=== PATIENT | male | born 1965 | race Caucasian/White ===

== ENCOUNTER 2020-11-19 01:11 | Emergency (ER) | payer OTHER ==
[~2020-11-19] VITALS: Ht 170.2 cm; Wt 76.7 kg
[2020-11-19] MEDS ORDERED: Norco 10-325 T1 EACH PO (02:30)
== END 2020-11-19 03:00 | disposition home or self-care (01) ==
LOC: ER 01:11
DX: T24.232A Burn of second degree of left lower leg, initial encounter (principal); X08.8XXA Exposure to other specified smoke, fire and flames, initial encounter
CPT/HCPCS: 16000; 96361-59; 96374-59; 96375-59; 99283-25; A9270; J1170; J2405; J7030

== ENCOUNTER 2020-11-28 13:19 | Day surgery (SDC) | payer OTHER ==
[~2020-11-28 13:19] MED LIST: Norco 10-325 T1 EACH PO
== END 2020-11-28 22:40 | disposition home or self-care (01) ==
LOC: WOUND 13:19
DX: T24.202D Burn of second degree of unspecified site of left lower limb, except ankle and foot, subsequent encounter (principal); I96 Gangrene, not elsewhere classified; X16.XXXD Contact with hot heating appliances, radiators and pipes, subsequent encounter
CPT/HCPCS: A9270; G0463

== ENCOUNTER 2020-12-07 00:21 | Day surgery (SDC) | payer OTHER | END 2020-12-07 22:36 | disposition home or self-care (01) | LOC: WOUND 00:21 | DX: T24.232D Burn of second degree of left lower leg, subsequent encounter (principal); X16.XXXD Contact with hot heating appliances, radiators and pipes, subsequent encounter | CPT/HCPCS: A9270; G0463 ==

== ENCOUNTER 2020-12-14 00:21 | Day surgery (SDC) | payer OTHER | END 2020-12-14 23:45 | disposition home or self-care (01) | LOC: WOUND 00:21 | DX: T24.232D Burn of second degree of left lower leg, subsequent encounter (principal); W29.2XXD Contact with other powered household machinery, subsequent encounter | CPT/HCPCS: A9270 ==

== ENCOUNTER 2020-12-28 01:38 | Day surgery (SDC) | payer OTHER | END 2020-12-28 23:00 | disposition home or self-care (01) | LOC: WOUND 01:38 | DX: T24.232D Burn of second degree of left lower leg, subsequent encounter (principal); X16.XXXD Contact with hot heating appliances, radiators and pipes, subsequent encounter | CPT/HCPCS: A9270 ==

== ENCOUNTER 2021-01-17 00:23 | Day surgery (SDC) | payer OTHER | END 2021-01-17 22:51 | disposition home or self-care (01) | LOC: WOUND 00:23 | DX: T24.232D Burn of second degree of left lower leg, subsequent encounter (principal); X16.XXXD Contact with hot heating appliances, radiators and pipes, subsequent encounter | CPT/HCPCS: A9270; G0463 ==

== ENCOUNTER 2021-01-27 21:05 | Emergency (ER) | payer OTHER ==
[~2021-01-27] VITALS: Ht 172.7 cm; Wt 81.7 kg
[2021-01-27 21:20] LABS: BASOPHILS ABSOLUTE AUTO 0.04 K/mm3 (0.00-0.23); BASOPHILS PERCENT AUTO 0 % (0-2); EOSINOPHILS ABSOLUTE AUTO 0.15 K/mm3 (0.00-0.68); EOSINOPHILS PERCENT AUTO 1 % (0-6); Hematocrit 36.2 % (37.0-53.0); Hemoglobin 11.4 g/dL (13.5-17.5); IMMATURE GRAN ABSOLUTE AUTO 0.05 K/mm3 (0.00-0.10); IMMATURE GRAN PERCENT AUTO 1 % (0-1); LYMPHOCYTES PERCENT AUTO 27 % (21-46); MONOCYTES ABSOLUTE AUTO 0.71 K/mm3 (0.16-1.47); MONOCYTES PERCENT AUTO 7 % (4-13); Mean Corpuscular HGB 25.9 pg (26.0-34.0); Mean Corpuscular HGB Conc 31.5 g/dL (31.5-36.5); Mean Corpuscular Volume 82 fL (80-100); Mean Platelet Volume 8.8 fL (9.1-12.4); NEUTROPHILS ABSOLUTE AUTO 6.68 K/mm3 (1.96-9.15); NEUTROPHILS PERCENT AUTO 64 % (41-73); Platelet Count 410 K/mm3 (150-400); RDW Coefficient Variation 15.1 % (11.7-14.2); White Blood Cell Count 10.43 K/mm3 (4.00-11.30)
[2021-01-27 21:40] LABS: Alanine Aminotransfer (ALT/SGP 25 U/L (12-78); Albumin, Blood 2.9 g/dL (3.4-5.0); Albumin/Globulin Ratio 0.5 (0.8-1.8); Alk Phos 121 U/L (50-136); Anion Gap 7 mmol/L (6-16); Aspartate Aminotrans (AST/SGOT 25 U/L (12-37); Bilirubin, Total 0.1 mg/dL (0.1-1.0); Blood Urea Nitrogen 15 mg/dL (8-24); Bun/Creatinine Ratio 20.1 (12.0-20.0); CO2, Blood 26 mmol/L (21-32); Calcium, Blood 8.6 mg/dL (8.5-10.1); Chloride, Blood 106 mmol/L (98-108); Creatinine, Blood 0.75 mg/dL (0.60-1.20); Globulin, Blood 5.6 g/dL (2.2-4.0); Glomerular Filtration Rate >60 (60-); Glucose, Blood 101 mg/dL (70-99); Potassium, Blood 3.8 mmol/L (3.5-5.5); Sodium, Blood 139 mmol/L (136-145); Total Protein, Blood 8.5 g/dL (6.4-8.2)
[2021-01-27] MEDS ORDERED: BACITO TOP (22:57)
[2021-01-27] MEDS ORDERED: HYDR1TAB94 PO (22:57)
[2021-01-27] MEDS ORDERED: Colace250 MG PO (22:57)
== END 2021-01-27 23:40 | disposition home or self-care (01) ==
LOC: ER 21:05
PROVIDERS: Physician Assistant
DX: T20.26XA Burn of second degree of forehead and cheek, initial encounter (principal); F17.210 Nicotine dependence, cigarettes, uncomplicated
CPT/HCPCS: 16020; 80053; 85025; 90471; 96374-59; 96375-59; 96376-59; 99285-25; A9270; J1170

== ENCOUNTER 2021-01-31 00:29 | Day surgery (SDC) | payer OTHER ==
[~2021-01-31 00:29] MED LIST changes: +BACITO TOP; +Colace250 MG PO; +HYDR1TAB94 PO
== END 2021-01-31 23:15 | disposition home or self-care (01) ==
LOC: WOUND 00:29
DX: T24.232D Burn of second degree of left lower leg, subsequent encounter (principal); T20.00XD Burn of unspecified degree of head, face, and neck, unspecified site, subsequent encounter; X58.XXXD Exposure to other specified factors, subsequent encounter
CPT/HCPCS: A9270; G0463

== ENCOUNTER 2024-08-14 16:21 | Inpatient (IN) | payer OTHER ==
[~2024-08-14] VITALS: Ht 170.2 cm; Wt 72.6 kg
[~2024-08-14 16:21] MED LIST changes: +AMOCLA875 PO
[2024-08-14] MEDS ORDERED: Morphine Sulfate 4 MG/1 ML Injection IV ONE (16:45)
[2024-08-14 16:50] LABS: BASOPHILS ABSOLUTE AUTO 0.06 K/mm3 (0.00-0.23); BASOPHILS PERCENT AUTO 1 % (0-2); EOSINOPHILS ABSOLUTE AUTO 0.11 K/mm3 (0.00-0.68); EOSINOPHILS PERCENT AUTO 1 % (0-6); Hematocrit 34.6 % (37.0-53.0); Hemoglobin 10.6 g/dL (13.5-17.5); IMMATURE GRAN ABSOLUTE AUTO 0.15 K/mm3 (0.00-0.10); IMMATURE GRAN PERCENT AUTO 1 % (0-1); LYMPHOCYTES ABSOLUTE AUTO 1.39 K/mm3 (0.84-5.20); LYMPHOCYTES PERCENT AUTO 13 % (21-46); MONOCYTES ABSOLUTE AUTO 0.56 K/mm3 (0.16-1.47); MONOCYTES PERCENT AUTO 5 % (4-13); Mean Corpuscular HGB 28.6 pg (26.0-34.0); Mean Corpuscular HGB Conc 30.6 g/dL (31.5-36.5); Mean Corpuscular Volume 93 fL (80-100); Mean Platelet Volume 8.8 fL (9.1-12.4); NEUTROPHILS ABSOLUTE AUTO 8.46 K/mm3 (1.96-9.15); NEUTROPHILS PERCENT AUTO 79 % (41-73); Platelet Count 251 K/mm3 (150-400); RDW Coefficient Variation 14.8 % (11.7-14.2); RDW Standard Deviation 51.6 fL (35.1-46.3); Red Blood Cell Count 3.71 M/mm3 (4.30-5.90); White Blood Cell Count 10.73 K/mm3 (4.00-11.30)
[2024-08-14 17:06] LABS: Albumin, Blood 2.2 g/dL (3.4-5.0); Albumin/Globulin Ratio 0.5 (0.8-1.8); Bilirubin, Total 0.3 mg/dL (0.1-1.0); Bun/Creatinine Ratio 19.2 (12.0-20.0); Creatinine, Blood 0.63 mg/dL (0.60-1.20); Globulin, Blood 4.2 g/dL (2.2-4.0); Potassium, Blood 3.1 mmol/L (3.5-5.5); Total Protein, Blood 6.4 g/dL (6.4-8.2)
[2024-08-14] MEDS ORDERED: HYDROmorphone HCl/Pf 1MG SYR IV ONE ×2 (17:50→19:10)
[2024-08-14] MEDS ORDERED: Ondansetron HCl 2 MG / ML 2ML Vial IV PRN ×2 (19:45→21:05)
[2024-08-14] MEDS ORDERED: HYDROmorphone HCl/Pf 1MG SYR IV PRN (19:45)
[2024-08-14] MEDS ORDERED: Magnesium Hydroxide Conc 10 ML UDC PO PRN (21:05)
[2024-08-14] MEDS ORDERED: DiphenhydrAMINE HCL 25 MG Cap PO PRN (21:05)
[2024-08-14] MEDS ORDERED: FLU VACC TS2024-25(6MOS UP)/PF 45 MCG/0.5 ML SYRINGE IM SCH (21:10)
[2024-08-14] MEDS ORDERED: HYDROcodone 10-APAP 325 TAB PO PRN (21:10)
[2024-08-14 21:23] VITALS: BP 198/88
[2024-08-14] MEDS ORDERED: Ketorolac Tromethamine 15mg Vial IV PRN (21:30)
[2024-08-14] MEDS ORDERED: Famotidine 20 MG Tab PO SCH (22:00)
[2024-08-14] MEDS ORDERED: Docusate Sodium 100 MG Cap PO SCH (22:00)
[2024-08-14 23:48] VITALS: BP 191/77
[2024-08-15] VITALS (8 sets, daily range): BP systolic 148–199; BP diastolic 64–87
[2024-08-15] MEDS ORDERED: HydrALAZINE HCl 20 MG / ML 1ML Vial IV PRN (00:20)
--- NOTE | 2024-08-15 06:24 | NUR ---
SHIFT SUMMARY CHEST TUBE TO RIGHT ANTERIOR CHEST IN PLACE WITH SLIGHT SHADOWING AROUND INSERTION SITE. NO BUBBLING OR ABNORMALITIES NOTED WITH THORA-VENT/CHEST TUBE DRAINAGE SYSTEM. NO DRAINAGED NOTED. PT DENIES SHORTNESS OF BREATH OR DYSPNEA. MEDICATED X 1 FOR HYPERTENSION. PT USING URINAL IN BED. IDALMIS PO INTAKE. DENIES N/V. PT CURRENTLY RESTING IN BED WITH RESP EVEN. HAS CALL LIGHT IN REACH. WILL GIVE REPORT TO ONCOMING RN .
[2024-08-15] MEDS ORDERED: Enoxaparin 40 MG/0.4 ML SYR SC SCH (09:00)
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
[2024-08-16 04:41] VITALS: BP 180/93
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
[2024-08-16 07:04] VITALS: BP 166/79
[2024-08-16 14:45] VITALS: BP 179/85; BP 183/91
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
[2024-08-16 18:28] VITALS: BP 166/81
[2024-08-16 19:47] VITALS: BP 179/85
[2024-08-16 22:01] VITALS: BP 159/77
[2024-08-17 03:32] VITALS: BP 177/91
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
[2024-08-17 07:08] VITALS: BP 181/74
[2024-08-17 10:43] VITALS: BP 169/96
[2024-08-17 12:40] VITALS: BP 152/83
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
[2024-08-17 14:48] VITALS: BP 154/101
[2024-08-17 18:32] VITALS: BP 154/80
[2024-08-18 04:09] VITALS: BP 151/93
[2024-08-18 05:09] LABS: BASOPHILS ABSOLUTE AUTO 0.04 K/mm3 (0.00-0.23); BASOPHILS PERCENT AUTO 1 % (0-2); EOSINOPHILS ABSOLUTE AUTO 0.23 K/mm3 (0.00-0.68); EOSINOPHILS PERCENT AUTO 3 % (0-6); Hematocrit 36.9 % (37.0-53.0); Hemoglobin 11.7 g/dL (13.5-17.5); IMMATURE GRAN ABSOLUTE AUTO 0.01 K/mm3 (0.00-0.10); IMMATURE GRAN PERCENT AUTO 0 % (0-1); LYMPHOCYTES ABSOLUTE AUTO 2.47 K/mm3 (0.84-5.20); LYMPHOCYTES PERCENT AUTO 35 % (21-46); MONOCYTES ABSOLUTE AUTO 0.59 K/mm3 (0.16-1.47); MONOCYTES PERCENT AUTO 8 % (4-13); Mean Corpuscular HGB 27.7 pg (26.0-34.0); Mean Corpuscular HGB Conc 31.7 g/dL (31.5-36.5); Mean Corpuscular Volume 87 fL (80-100); Mean Platelet Volume 8.9 fL (9.1-12.4); NEUTROPHILS ABSOLUTE AUTO 3.68 K/mm3 (1.96-9.15); NEUTROPHILS PERCENT AUTO 52 % (41-73); Platelet Count 316 K/mm3 (150-400); RDW Coefficient Variation 15.4 % (11.7-14.2); RDW Standard Deviation 49.4 fL (35.1-46.3); Red Blood Cell Count 4.23 M/mm3 (4.30-5.90); White Blood Cell Count 7.02 K/mm3 (4.00-11.30)
--- NOTE | 2024-08-18 05:24 | NUR ---
SHIFT SUMMARY NO ACUTE CHANGES T/O SHIFT. PAIN MANAGED PER EMAR. PT DENIES SOB OR DYSPNEA. RESPIRATIONS EVEN AND UNLABORED. CONT BIOX IN PLACE WITH SPO2 ABOUT 97%. PREVIOUS THUROVENT PLACEMENT DRESSING CDI. IND TO BATHROOM. IDALMIS PO INTAKE. PT CURRENTLY RESTING IN BED WITH CALL LIGHT IN REACH. PLAN TO GIVE REPORT TO ONCOMING RN
[2024-08-18 05:49] LABS: Bun/Creatinine Ratio 22.5 (12.0-20.0); Creatinine, Blood 0.89 mg/dL (0.60-1.20); Potassium, Blood 4.1 mmol/L (3.5-5.5)
[2024-08-18 07:10] VITALS: BP 153/74
[2024-08-18] MEDS ORDERED: Lisinopril 10 MG Tab PO SCH (09:00)
[2024-08-18] MEDS ORDERED: BENADRYL25 MG PO (09:57)
[2024-08-18] MEDS ORDERED: DOCU100 PO (09:57)
[2024-08-18] MEDS ORDERED: Norco 10-325 T1 EACH PO (09:58)
[2024-08-18] MEDS ORDERED: Prinivil10 MG PO (09:58)
[2024-08-18 10:30] VITALS: BP 155/88
--- NOTE | 2024-08-18 10:40 | NUR ---
DISCHARGE PT PROVIDED WITH WRITTEN AND VERBAL DISCHARGE INSTRUCTIONS BY CORTEZ JONES. PT LEFT AT APPROXIMATELY 1035.
== END 2024-08-18 10:34 | disposition home or self-care (01) | DRG 200 ==
LOC: ER 16:21 → SURS 19:45
PROVIDERS: Emergency Medicine; Family Medicine; ADMIT Surgery
PROC: 0W9930Z Drainage of Right Pleural Cavity with Drainage Device, Percutaneous Approach (ICD-10-PCS; principal; 2024-08-14)
DX: S27.0XXA Traumatic pneumothorax, initial encounter (principal); S22.31XA Fracture of one rib, right side, initial encounter for closed fracture; S27.321A Contusion of lung, unilateral, initial encounter; K21.9 Gastro-esophageal reflux disease without esophagitis; I10 Essential (primary) hypertension; S42.101A Fracture of unspecified part of scapula, right shoulder, initial encounter for closed fracture; Z90.49 Acquired absence of other specified parts of digestive tract; V49.9XXA Car occupant (driver) (passenger) injured in unspecified traffic accident, initial encounter
CPT/HCPCS: 32551; 36415; 71045; 71260; 72125; 74177; 80048; 80053; 83690; 85025; 86850; 86900; 86901; 93005; 93010; 94762; 96374-59; 96375-59; 96376-59; 99285-25; A9270; J0360; J1170; J1650; J1885; J2270; Q9967